=== PATIENT | female | born 1960 | race Asian ===

== ENCOUNTER → 2018-04-13 | Outpatient (CLI) | payer OTHER ==
[2018-04-16 08:10] LABS: QUANTIF MITOGEN-NIL >10.00 IU/ML; QUANTIFERON POSITIVE (NEGATIVE); QUANTIFERON NIL 0.81 IU/ML
== END | disposition home or self-care (01) ==
LOC: C.LABSPEC 14:11
PROVIDERS: ATTEND Family Medicine
DX: Z11.3 Encounter for screening for infections with a predominantly sexual mode of transmission (principal); Z11.1 Encounter for screening for respiratory tuberculosis

== ENCOUNTER → 2018-04-22 | Outpatient (CLI) | payer OTHER ==
--- NOTE | 2018-04-22 14:58 | DIAGNOSTIC IMAGING REPORT ---
CHEST 2 VIEWS ROUTINE HISTORY: POSITIVE QUANTIFERON GOLD COMPARISON: None. FINDINGS: Punctate calcification along within the periphery the right upper lobe. Otherwise, the lungs are clear. The heart is normal in size. No pleural effusions. No pneumothorax. IMPRESSION: No acute process. Electronically signed by: Freddie Hollis M.D. 04/22/2018 2:57 PM Dictated Date/Time: 04/22/2018 2:55 PM
== END | disposition home or self-care (01) ==
LOC: C.RAD1850 14:42
PROVIDERS: ATTEND Family Medicine
DX: R76.12 Nonspecific reaction to cell mediated immunity measurement of gamma interferon antigen response without active tuberculosis (principal)